=== PATIENT | male | born 1945 | race Two or more races ===

== ENCOUNTER 2020-05-30 13:27 | Inpatient (IN) | payer OTHER ==
[~2020-05-30] VITALS: Ht 167.6 cm; Wt 68.0 kg
[2020-05-30] MEDS ORDERED: SODIUM CHLORIDE 0.9% 500 ML IV ONE (15:45)
[2020-05-30] MEDS ORDERED: PANTOPRAZOLE 40mg/50ML NS AE 50 ML IV ONE (16:30)
[2020-05-30] MEDS ORDERED: PANTOPRAZOLE 40 MG/10 ML VIAL INJ IV ONE (16:30)
[2020-05-30 16:34] LABS: Basophils # (auto) 0 10 ^3/uL (0-0.2); Basophils % (auto) 0.1 % (0.0-2.0); Eosinophils # (auto) 0 10 ^3/uL (0-0.8); Hemoglobin 9.4 g/dL (13.5-17.5); Lymphocytes % (auto) 7.5 % (10.0-50.0); Mean Corpuscular Hemoglobin 33.5 pg (28.0-32.0); Mean Corpuscular Hgb Conc. 34.9 g/dL (32.0-36.0); Monocytes # (auto) 0.6 10 ^3/uL (0-1.3); Monocytes % (auto) 4.8 % (0.0-12.0); Neutrophils # (auto) 11.4 10 ^3/uL (1.6-8.6); Neutrophils % (auto) 87.6 % (37.0-80.0); Platelet Count (auto) 274 10^3/uL (140-450); Red Blood Cells 2.81 10^6/uL (4.5-5.90); Red Cell Distribution Width 13.3 % (11.8-14.3)
[2020-05-30 16:59] LABS: Anion Gap 11 (5-15); Calcium 8.3 mg/dL (8.5-10.1); Carbon Dioxide 21 mmol/L (21-32); Chloride 99 mmol/L (98-107); Glucose 98 mg/dL (74-106); Magnesium 1.8 mg/dL (1.6-2.6); Potassium 4.5 mmol/L (3.5-5.1); Sodium 131 mmol/L (136-145)
[2020-05-30 17:02] LABS: INR 1.08 (0.9-1.15)
[2020-05-30 17:05] LABS: Alanine Aminotransferase 17 U/L (16-61); Alkaline Phosphatase 41 U/L (45-117); Aspartate Aminotransferase 11 U/L (15-37); BUN/Creatinine Ratio 69.8; Bilirubin, Total 0.2 mg/dL (0.2-1.0); GFR African American 79 mL/min; GFR Non-African American 65 mL/min; Total Protein 6.4 g/dL (6.4-8.2)
[2020-05-30] MEDS ORDERED: OCTREOTIDE ACETATE 100 MCG in SODIUM CHL 0.9% 50 ML IV ONE (17:15)
[2020-05-30 17:21] LABS: Blood Urea Nitrogen 81 mg/dL (7-18)
[2020-05-30] MEDS ORDERED: FAMOTIDINE (10MG/ML) 2ML VL IV SCH (17:56)
[2020-05-30 18:38] LABS: Urine WBC None Seen /hpf (0 - 3)
[2020-05-30] MEDS: OCTREOTIDE ACETATE 500 MCG in SODIUM CHL 0.9% 99 ML IV SCH (19:07)
[2020-05-30 19:11] LABS: Urine Bacteria NONE SEEN /hpf (None Seen); Urine Blood Negative /uL (Negative); Urine Specific Gravity 1.018 (1.001-1.035)
[2020-05-30] MEDS ORDERED: SODIUM CHLORIDE 0.9% 1,000 ML IV ONE (19:30)
[2020-05-30 22:21] LABS: Hemoglobin 8.3 g/dL (13.5-17.5)
[2020-05-31] MEDS ORDERED: HYDROcodone-ACET 5/325MG TAB PO PRN (00:30)
[2020-05-31] MEDS ORDERED: NITROGLYCERIN 0.4 MG SL TAB SL PRN (00:30)
[2020-05-31] MEDS ORDERED: ACETAMINOPHEN 325 MG TAB PO PRN (00:30)
[2020-05-31] MEDS ORDERED: DOCUSATE SOD 100 MG CAP PO PRN (00:30)
[2020-05-31] MEDS ORDERED: ONDANSETRON HCL 4 MG/2 ML VIAL IV PRN (00:30)
[2020-05-31] MEDS ORDERED: FAMOTIDINE (10MG/ML) 2ML VL IV SCH (00:30)
[2020-05-31] MEDS ORDERED: MORPHINE SULF INJ 2 MG/ML SYRINGE 1ML IV PRN (00:30)
[2020-05-31] MEDS: SODIUM CHLORIDE 0.9% 1,000 ML IV SCH (00:30)
[2020-05-31] MEDS: OCTREOTIDE ACETATE 500 MCG in SODIUM CHL 0.9% 99 ML IV SCH ×2 (03:59→13:15)
[2020-05-31 07:37] LABS: Basophils # (auto) 0.1 10 ^3/uL (0-0.2); Eosinophils # (auto) 0 10 ^3/uL (0-0.8); Hemoglobin 7.9 g/dL (13.5-17.5); Lymphocytes # (auto) 2.1 10 ^3/uL (0.4-5.4); Monocytes # (auto) 0.8 10 ^3/uL (0-1.3); White Blood Cell 7.6 10^3/uL (4.4-10.8)
[2020-05-31 07:40] LABS: Basophils % (auto) 0.9 % (0.0-2.0); Eosinophils % (auto) 0.4 % (0.0-7.0); Lymphocytes % (auto) 27.8 % (10.0-50.0); Mean Corpuscular Hemoglobin 34.3 pg (28.0-32.0); Mean Corpuscular Volume 95.3 fL (80.0-100.0); Monocytes % (auto) 11.2 % (0.0-12.0); Neutrophils # (auto) 4.5 10 ^3/uL (1.6-8.6); Neutrophils % (auto) 59.7 % (37.0-80.0); Platelet Count (auto) 243 10^3/uL (140-450); Red Blood Cells 2.31 10^6/uL (4.5-5.90); Red Cell Distribution Width 13.4 % (11.8-14.3)
[2020-05-31 07:59] LABS: Calcium 8.5 mg/dL (8.5-10.1); Potassium 4.7 mmol/L (3.5-5.1)
[2020-05-31 08:01] LABS: BUN/Creatinine Ratio 59.2
[2020-05-31 08:04] LABS: Bilirubin, Total 0.2 mg/dL (0.2-1.0); Total Protein 5.8 g/dL (6.4-8.2)
[2020-05-31] MEDS ORDERED: PANTOPRAZOLE 40mg/50ML NS AE 50 ML IV SCH (09:15)
[2020-05-31] MEDS: cefTRIAXone 1GM/50ML D5W 50 ML IV SCH (09:25)
[2020-05-31] MEDS: MULTIPLE VITAMIN TAB PO SCH (09:26)
[2020-05-31] MEDS ORDERED: ASCORBIC ACID 500 MG TAB PO SCH (10:00)
[2020-05-31] MEDS ORDERED: ENOXAPARIN SOD 40 MG/0.4 ML SYRINGE SC SCH (10:00)
[2020-05-31] MEDS ORDERED: ZINC SULFATE 220mg CAP or TAB PO SCH (10:00)
[2020-05-31] MEDS: PANTOPRAZOLE 40mg/50ML NS AE 50 ML IV SCH (10:01)
[2020-06-01 00:31] LABS: Hematocrit 22.4 % (41.0-53.0)
[2020-06-01] MEDS: PANTOPRAZOLE 40 MG TAB PO SCH ×3 (02:21→09:36)
[2020-06-01] MEDS: SODIUM CHLORIDE 0.9% 1,000 ML IV SCH ×3 (02:28→09:38)
[2020-06-01] MEDS: PANTOPRAZOLE 40mg/50ML NS AE 50 ML IV SCH ×4 (02:29→09:38)
[2020-06-01 06:34] LABS: Basophils # (auto) 0 10 ^3/uL (0-0.2); Monocytes # (auto) 0.6 10 ^3/uL (0-1.3)
[2020-06-01 06:37] LABS: Basophils % (auto) 0.8 % (0.0-2.0); Eosinophils # (auto) 0.2 10 ^3/uL (0-0.8); Eosinophils % (auto) 2.6 % (0.0-7.0); Hematocrit 22.1 % (41.0-53.0); Lymphocytes # (auto) 1.2 10 ^3/uL (0.4-5.4); Lymphocytes % (auto) 20.4 % (10.0-50.0); Mean Corpuscular Hemoglobin 34.5 pg (28.0-32.0); Mean Corpuscular Hgb Conc. 36.3 g/dL (32.0-36.0); Mean Corpuscular Volume 94.9 fL (80.0-100.0); Monocytes % (auto) 9.8 % (0.0-12.0); Neutrophils % (auto) 66.4 % (37.0-80.0); Nucleated Red Blood Cells % 0.1 %; Platelet Count (auto) 264 10^3/uL (140-450); Red Blood Cells 2.33 10^6/uL (4.5-5.90); Red Cell Distribution Width 13.2 % (11.8-14.3)
[2020-06-01 07:06] LABS: Calcium 8.7 mg/dL (8.5-10.1); Potassium 4.2 mmol/L (3.5-5.1)
[2020-06-01 07:12] LABS: Albumin 3.1 g/dL (3.4-5.0); BUN/Creatinine Ratio 33.8; Bilirubin, Total 0.3 mg/dL (0.2-1.0)
[2020-06-01] MEDS: cefTRIAXone 1GM/50ML D5W 50 ML IV SCH ×2 (09:17→11:11)
[2020-06-01] MEDS: MULTIPLE VITAMIN TAB PO SCH (09:18)
[2020-06-01] MEDS ORDERED: LOSA25TA38 PO (12:19)
[2020-06-01] MEDS ORDERED: ISON100T32 PO (12:19)
[2020-06-01] MEDS ORDERED: LEVO25TA6 PO (12:19)
[2020-06-01] MEDS ORDERED: diphenhdrAMINE HCL 50 MG/1 ML VL ONE (12:19)
[2020-06-01] MEDS ORDERED: GLIP5TAB12 PO (12:19)
[2020-06-01] MEDS ORDERED: METF-370 PO (12:19)
[2020-06-01] MEDS ORDERED: fentaNYL CITRATE 100 MCG/2 ML VL ONE (12:20)
[2020-06-01] MEDS ORDERED: MIDAZOLAM HCL 5 MG/ML-1ML VIAL ONE (12:20)
[2020-06-01] MEDS ORDERED: LIDOCAINE VISCOUS 2% 15ML UD ONE (12:27)
[2020-06-01] MEDS ORDERED: PANT40T PO (13:38)
[2020-06-01 16:15] VITALS: BP 117/68
== END 2020-06-01 16:28 | disposition home or self-care (01) | DRG 378 ==
LOC: EDSEX 13:27 → ER 13:27 → EDBD 13:27 → OVERFLOW 05-31 00:25
PROVIDERS: ADMIT Nurse Practitioner Family; ATTEND Internal Medicine
PROC: 0DB68ZX Excision of Stomach, Via Natural or Artificial Opening Endoscopic, Diagnostic (ICD-10-PCS; principal; 2020-06-01 12:47)
DX: K29.81 Duodenitis with bleeding (principal); D62 Acute posthemorrhagic anemia; N39.0 Urinary tract infection, site not specified; E87.1 Hypo-osmolality and hyponatremia; K27.4 Chronic or unspecified peptic ulcer, site unspecified, with hemorrhage; N28.9 Disorder of kidney and ureter, unspecified; E86.1 Hypovolemia; D72.829 Elevated white blood cell count, unspecified; E86.0 Dehydration; E11.9 Type 2 diabetes mellitus without complications; F41.9 Anxiety disorder, unspecified; G89.29 Other chronic pain; I10 Essential (primary) hypertension; F17.210 Nicotine dependence, cigarettes, uncomplicated; J44.9 Chronic obstructive pulmonary disease, unspecified; N40.0 Benign prostatic hyperplasia without lower urinary tract symptoms; Z79.899 Other long term (current) drug therapy; Z79.891 Long term (current) use of opiate analgesic; Z79.01 Long term (current) use of anticoagulants; Z20.822 Contact with and (suspected) exposure to COVID-19; K29.71 Gastritis, unspecified, with bleeding
CPT/HCPCS: 36415; 43239; 71045; 74176; 80053; 81001; 83735; 83880; 84484; 85014; 85018; 85025; 85379; 85610; 85730; 86850; 86900; 86901; 86920; 87086; 87426; 93005; 96361; 96365; 96366; 96375; 99291; G0378; J0696; J2250; J3490

== ENCOUNTER 2023-06-07 23:47 | Inpatient (IN) | payer OTHER ==
[~2023-06-07] VITALS: Ht 170.2 cm; Wt 77.6 kg
[~2023-06-07 23:47] MED LIST: GLIP5TAB12 PO; ISON100T32 PO; LEVO25TA6 PO; LOSA25TA15 PO; METF-370 PO; PANT40T PO
[2023-06-08] VITALS (18 sets, daily range): BP systolic 105–118; BP diastolic 55–59; PULSE 62–96; RESP 14–23; TEMP 97.5–97.8; O2SAT 85–98
[2023-06-08 00:38] LABS: Basophils # (auto) 0 10 ^3/uL (0-0.2); Basophils % (auto) 0.2 % (0.0-2.0); Eosinophils # (auto) 0.1 10 ^3/uL (0-0.8); Hematocrit 38.4 % (41.0-53.0); Hemoglobin 12.9 g/dL (13.5-17.5); Lymphocytes # (auto) 0.6 10 ^3/uL (0.4-5.4); Lymphocytes % (auto) 3.6 % (10.0-50.0); Mean Corpuscular Hemoglobin 32.9 pg (28.0-32.0); Mean Corpuscular Hgb Conc. 33.7 g/dL (32.0-36.0); Mean Corpuscular Volume 97.6 fL (80.0-100.0); Monocytes # (auto) 1.1 10 ^3/uL (0-1.3); Monocytes % (auto) 6.9 % (0.0-12.0); Neutrophils # (auto) 13.7 10 ^3/uL (1.6-8.6); Neutrophils % (auto) 88.3 % (37.0-80.0); Nucleated Red Blood Cells % 0.1 %; Red Blood Cells 3.93 10^6/uL (4.5-5.90); Red Cell Distribution Width 13.9 % (11.8-14.3); White Blood Cell 15.5 10^3/uL (4.4-10.8)
[2023-06-08 00:56] LABS: Chloride 106 mmol/L (98-107); Potassium 3.5 mmol/L (3.5-5.1); Sodium 135 mmol/L (136-145)
[2023-06-08 00:57] LABS: Anion Gap 11 (5-15); Calcium 7.9 mg/dL (8.7-10.4); Carbon Dioxide 18 mmol/L (20-30)
[2023-06-08 01:02] LABS: BUN/Creatinine Ratio 21.5 (10.0-20.0); Blood Urea Nitrogen 20 mg/dL (9-23); Glucose 219 mg/dL (74-106)
[2023-06-08] MEDS ORDERED: ACETAMINOPHEN 325 MG TAB PO PRN (01:15)
[2023-06-08] MEDS ORDERED: methylPREDNISolone SOD SUCC 125 MG/2 ML VL IV ONE (01:15)
[2023-06-08] MEDS ORDERED: DEXTROSE (50%) 50ML SYRG IV PRN (01:15)
[2023-06-08] MEDS ORDERED: IOHEXOL 350 MG/ML 100ML IJ ONE (01:22)
[2023-06-08] MEDS: levoFLOXacin 500MG 100 ML IV SCH ×2 (02:04→10:22)
[2023-06-08] MEDS ORDERED: PROMETHAZINE HCL 25 MG/ML 1ML IV PRN (04:00)
[2023-06-08 05:29] LABS: Calcium 7.7 mg/dL (8.7-10.4); Chloride 107 mmol/L (98-107); Potassium 4.5 mmol/L (3.5-5.1); Sodium 136 mmol/L (136-145)
[2023-06-08 05:30] LABS: Anion Gap 7 (5-15); Basophils # (auto) 0 10 ^3/uL (0-0.2); Basophils % (auto) 0.1 % (0.0-2.0); Carbon Dioxide 22 mmol/L (20-30); Eosinophils # (auto) 0 10 ^3/uL (0-0.8); Eosinophils % (auto) 0.1 % (0.0-7.0); Hematocrit 36.1 % (41.0-53.0); Hemoglobin 12.2 g/dL (13.5-17.5); Lymphocytes # (auto) 0.4 10 ^3/uL (0.4-5.4); Lymphocytes % (auto) 3.3 % (10.0-50.0); Mean Corpuscular Hemoglobin 32.9 pg (28.0-32.0); Mean Corpuscular Hgb Conc. 33.8 g/dL (32.0-36.0); Mean Corpuscular Volume 97.2 fL (80.0-100.0); Monocytes # (auto) 0.2 10 ^3/uL (0-1.3); Neutrophils # (auto) 11.9 10 ^3/uL (1.6-8.6); Neutrophils % (auto) 94.5 % (37.0-80.0); Red Blood Cells 3.71 10^6/uL (4.5-5.90); Red Cell Distribution Width 13.6 % (11.8-14.3); White Blood Cell 12.6 10^3/uL (4.4-10.8)
[2023-06-08 05:35] LABS: BUN/Creatinine Ratio 23.6 (10.0-20.0); Blood Urea Nitrogen 17 mg/dL (9-23); Glucose 167 mg/dL (74-106)
[2023-06-08] MEDS: ACCU-CHEK COMFORT CURVE STRIP VI SCH ×4 (06:46→21:34)
[2023-06-08] MEDS: InsuLIN REG 1unit/0.01ml Soln (100units/ml) SC SCH ×4 (06:46→21:43)
[2023-06-08] MEDS: LEVOTHYROXINE SODIUM 25 MCG TAB PO SCH (06:46)
[2023-06-08] MEDS: ALBUTEROL SULF 2.5 MG/0.5ML(0.5%) NEB SOLN NEB SCH ×5 (07:00→22:20)
[2023-06-08] MEDS: IPRATROPIUM BROM 0.5 MG/2.5ML INH SOL NEB SCH ×5 (07:00→22:20)
[2023-06-08 09:30] LABS: Urine Bacteria NONE SEEN /hpf (None Seen); Urine Blood Negative /uL (Negative); Urine Clarity Clear (Clear); Urine Color Yellow (Yellow); Urine Protein, UAD 1+ (Negative); Urine Urobilinogen Normal (Negative); Urine WBC 1 /hpf (0 - 3); Urine pH 6.5 (5.0-8.0)
[2023-06-08 09:36] LABS: Urine Specific Gravity > 1.050 (1.001-1.035)
[2023-06-08] MEDS ORDERED: methylPREDNISolone SOD SUCC 40 MG/ML VL IV SCH (10:00)
[2023-06-08] MEDS: ASPirin 81 mg TAB PO SCH (10:20)
[2023-06-08] MEDS: APIXABAN 5 MG TAB PO SCH ×2 (10:21→21:34)
[2023-06-08] MEDS: FINASTERIDE 5 MG TAB PO SCH (10:21)
[2023-06-08] MEDS: CLOPIDOGREL BISULFATE 75 MG TAB PO SCH (10:21)
[2023-06-08] MEDS: METOPROLOL TARTRATE 25 MG TAB PO SCH ×2 (10:22→21:34)
[2023-06-08] MEDS: TAMSULOSIN HYDROCHLORIDE 0.4 MG CAP PO SCH (17:49)
[2023-06-08] MEDS: ATORVASTATIN 20 MG TAB PO SCH (21:34)
[2023-06-09] VITALS (17 sets, daily range): BP systolic 118–143; BP diastolic 58–74; PULSE 65–101; RESP 16–22; TEMP 97.4–98.3; O2SAT 70–95
[2023-06-09] MEDS: ACCU-CHEK COMFORT CURVE STRIP VI SCH ×4 (05:58→21:24)
[2023-06-09] MEDS: LEVOTHYROXINE SODIUM 25 MCG TAB PO SCH (05:58)
[2023-06-09] MEDS: InsuLIN REG 1unit/0.01ml Soln (100units/ml) SC SCH ×4 (05:59→21:24)
[2023-06-09 06:59] LABS: Basophils # (auto) 0 10 ^3/uL (0-0.2); Basophils % (auto) 0.1 % (0.0-2.0); Eosinophils # (auto) 0 10 ^3/uL (0-0.8); Eosinophils % (auto) 0.1 % (0.0-7.0); Hematocrit 33.4 % (41.0-53.0); Hemoglobin 11.4 g/dL (13.5-17.5); Lymphocytes # (auto) 0.9 10 ^3/uL (0.4-5.4); Lymphocytes % (auto) 6.1 % (10.0-50.0); Mean Corpuscular Hemoglobin 33.3 pg (28.0-32.0); Mean Corpuscular Hgb Conc. 34.2 g/dL (32.0-36.0); Mean Corpuscular Volume 97.6 fL (80.0-100.0); Monocytes # (auto) 1.3 10 ^3/uL (0-1.3); Monocytes % (auto) 8.7 % (0.0-12.0); Neutrophils # (auto) 12.6 10 ^3/uL (1.6-8.6); Nucleated Red Blood Cells % 0.1 %; Red Blood Cells 3.42 10^6/uL (4.5-5.90); Red Cell Distribution Width 13.4 % (11.8-14.3); White Blood Cell 14.9 10^3/uL (4.4-10.8)
[2023-06-09 07:28] LABS: Chloride 107 mmol/L (98-107); Potassium 3.6 mmol/L (3.5-5.1); Sodium 136 mmol/L (136-145)
[2023-06-09 07:29] LABS: Anion Gap 8 (5-15); Carbon Dioxide 21 mmol/L (20-30)
[2023-06-09 07:34] LABS: BUN/Creatinine Ratio 23.4 (10.0-20.0); Blood Urea Nitrogen 15 mg/dL (9-23); Glucose 175 mg/dL (74-106)
[2023-06-09] MEDS: ALBUTEROL SULF 2.5 MG/0.5ML(0.5%) NEB SOLN NEB SCH ×5 (07:50→21:54)
[2023-06-09] MEDS: IPRATROPIUM BROM 0.5 MG/2.5ML INH SOL NEB SCH ×5 (07:50→21:54)
[2023-06-09] MEDS: ASPirin 81 mg TAB PO SCH (09:53)
[2023-06-09] MEDS: APIXABAN 5 MG TAB PO SCH ×2 (09:54→21:23)
[2023-06-09] MEDS: FINASTERIDE 5 MG TAB PO SCH (09:55)
[2023-06-09] MEDS: METOPROLOL TARTRATE 25 MG TAB PO SCH ×2 (09:55→21:23)
[2023-06-09] MEDS: CLOPIDOGREL BISULFATE 75 MG TAB PO SCH (09:55)
[2023-06-09] MEDS: methylPREDNISolone SOD SUCC 40 MG/ML VL IV SCH ×2 (09:56→20:46)
[2023-06-09] MEDS: levoFLOXacin 500MG 100 ML IV SCH (10:04)
[2023-06-09] MEDS: TAMSULOSIN HYDROCHLORIDE 0.4 MG CAP PO SCH (17:31)
[2023-06-09] MEDS: ATORVASTATIN 20 MG TAB PO SCH (21:23)
[2023-06-10] VITALS (24 sets, daily range): BP systolic 142–164; BP diastolic 68–78; PULSE 76–106; RESP 16–28; TEMP 97.7–98.5; O2SAT 85–94
[2023-06-10] MEDS: ACCU-CHEK COMFORT CURVE STRIP VI SCH ×4 (06:07→21:43)
[2023-06-10] MEDS: LEVOTHYROXINE SODIUM 25 MCG TAB PO SCH (06:07)
[2023-06-10] MEDS: InsuLIN REG 1unit/0.01ml Soln (100units/ml) SC SCH ×4 (06:12→21:42)
[2023-06-10] MEDS: ALBUTEROL SULF 2.5 MG/0.5ML(0.5%) NEB SOLN NEB SCH ×5 (06:43→22:24)
[2023-06-10] MEDS: IPRATROPIUM BROM 0.5 MG/2.5ML INH SOL NEB SCH ×5 (06:43→22:24)
[2023-06-10 07:04] LABS: Basophils # (auto) 0 10 ^3/uL (0-0.2); Basophils % (auto) 0.1 % (0.0-2.0); Eosinophils # (auto) 0 10 ^3/uL (0-0.8); Hemoglobin 12.2 g/dL (13.5-17.5); Lymphocytes % (auto) 4.1 % (10.0-50.0); Mean Corpuscular Hemoglobin 32.9 pg (28.0-32.0); Mean Corpuscular Hgb Conc. 33.9 g/dL (32.0-36.0); Monocytes # (auto) 1.8 10 ^3/uL (0-1.3); Monocytes % (auto) 7.4 % (0.0-12.0); Neutrophils # (auto) 21.6 10 ^3/uL (1.6-8.6); Neutrophils % (auto) 88.4 % (37.0-80.0); Red Blood Cells 3.71 10^6/uL (4.5-5.90); Red Cell Distribution Width 13.8 % (11.8-14.3); White Blood Cell 24.5 10^3/uL (4.4-10.8)
[2023-06-10 07:10] LABS: Calcium 8.9 mg/dL (8.5-10.1); Chloride 105 mmol/L (98-107); Potassium 4.2 mmol/L (3.5-5.1); Sodium 136 mmol/L (136-145)
[2023-06-10 07:16] LABS: BUN/Creatinine Ratio 21.1 (10.0-20.0); Blood Urea Nitrogen 16 mg/dL (9-23); Glucose 233 mg/dL (74-106)
[2023-06-10 07:35] LABS: Anion Gap 10 (5-15); Carbon Dioxide 21 mmol/L (20-30)
[2023-06-10] MEDS ORDERED: CEFTRIAXONE SODIUM 2 GM in D5W 5% 100 ML IV SCH (08:45)
[2023-06-10] MEDS ORDERED: AZITHROMYCIN 500MG/ 250ML 250 ML IV SCH (08:45)
[2023-06-10] MEDS ORDERED: VANCOMYCIN 1GM/200ML 200 ML IV ONE (09:00)
[2023-06-10] MEDS ORDERED: VANCOMYCIN PER PHARMACY 0 MG IV SCH (09:00)
[2023-06-10] MEDS ORDERED: ALBUTEROL SULF 2.5 MG/0.5ML(0.5%) NEB SOLN NEB ONE (09:00)
[2023-06-10] MEDS ORDERED: FUROSEMIDE 40 MG/4 ML VIAL IV ONE (09:00)
[2023-06-10 09:23] LABS: Base Excess -0.6 mmol/L (-2.0-2.0)
[2023-06-10] MEDS: ASPirin 81 mg TAB PO SCH (09:32)
[2023-06-10] MEDS: methylPREDNISolone SOD SUCC 40 MG/ML VL IV SCH ×2 (09:32→21:25)
[2023-06-10] MEDS: FINASTERIDE 5 MG TAB PO SCH (09:32)
[2023-06-10] MEDS: METOPROLOL TARTRATE 25 MG TAB PO SCH ×2 (09:45→21:26)
[2023-06-10] MEDS: APIXABAN 5 MG TAB PO SCH ×2 (09:45→21:26)
[2023-06-10] MEDS: CLOPIDOGREL BISULFATE 75 MG TAB PO SCH (09:46)
[2023-06-10] MEDS ORDERED: BUDE0.253 NEB (10:00)
[2023-06-10] MEDS ORDERED: BUDE1AER5 IN (10:00)
[2023-06-10] MEDS ORDERED: ATOR10TA52 PO (10:00)
[2023-06-10] MEDS ORDERED: AMLO1TAB23 PO (10:00)
[2023-06-10] MEDS ORDERED: LIOT5TAB20 PO (10:12)
[2023-06-10] MEDS ORDERED: LOSA100T58 PO (10:12)
[2023-06-10] MEDS ORDERED: NITR0.4S29 SL (10:12)
[2023-06-10] MEDS ORDERED: CLOP75TA70 PO (10:12)
[2023-06-10] MEDS ORDERED: CETI10CH PO (10:12)
[2023-06-10] MEDS ORDERED: PRED20TA2 PO (10:12)
[2023-06-10] MEDS ORDERED: GEMF-66 PO (10:12)
[2023-06-10] MEDS ORDERED: FINA5TAB4 PO (10:12)
[2023-06-10] MEDS ORDERED: FORM20NE3 NEB (10:12)
[2023-06-10] MEDS ORDERED: METF-370 PO (10:12)
[2023-06-10] MEDS ORDERED: HYDR-4227 PO (10:12)
[2023-06-10] MEDS ORDERED: OMEP-434 PO (10:12)
[2023-06-10] MEDS ORDERED: DICY20TA PO (10:12)
[2023-06-10] MEDS ORDERED: GLIP5TAB12 PO (10:12)
[2023-06-10] MEDS ORDERED: LEV75T PO (10:12)
[2023-06-10] MEDS ORDERED: PANT40TA2 PO (10:12)
[2023-06-10 10:18] LABS: COVID19 ANTIGEN SOFIA FIA NEGATIVE (NEGATIVE)
[2023-06-10 10:18] LABS: Rapid Influenza A Negative (Negative); Rapid Influenza B Negative (Negative)
[2023-06-10 11:25] LABS: Base Excess -1.1 mmol/L (-2.0-2.0)
[2023-06-10] MEDS: MEROPENEM 1GM IVPB 100 ML IV SCH ×2 (14:26→22:58)
[2023-06-10] MEDS: TAMSULOSIN HYDROCHLORIDE 0.4 MG CAP PO SCH (17:47)
[2023-06-10] MEDS: VANCOMYCIN 1GM/200ML 200 ML IV SCH (21:26)
[2023-06-10] MEDS: ATORVASTATIN 20 MG TAB PO SCH (21:26)
[2023-06-11] VITALS (21 sets, daily range): BP systolic 121–151; BP diastolic 57–68; PULSE 64–87; RESP 17–30; TEMP 97.4–98.2; O2SAT 89–96
[2023-06-11] MEDS: LEVOTHYROXINE SODIUM 25 MCG TAB PO SCH (06:18)
[2023-06-11] MEDS: MEROPENEM 1GM IVPB 100 ML IV SCH ×3 (06:18→21:14)
[2023-06-11] MEDS: IPRATROPIUM BROM 0.5 MG/2.5ML INH SOL NEB SCH ×5 (06:21→22:15)
[2023-06-11] MEDS: ALBUTEROL SULF 2.5 MG/0.5ML(0.5%) NEB SOLN NEB SCH ×5 (06:21→22:15)
[2023-06-11] MEDS: ACCU-CHEK COMFORT CURVE STRIP VI SCH ×4 (06:25→21:14)
[2023-06-11] MEDS: InsuLIN REG 1unit/0.01ml Soln (100units/ml) SC SCH ×4 (06:28→21:23)
[2023-06-11 06:34] LABS: Basophils # (auto) 0 10 ^3/uL (0-0.2); Basophils % (auto) 0.1 % (0.0-2.0); Eosinophils # (auto) 0 10 ^3/uL (0-0.8); Hematocrit 31.6 % (41.0-53.0); Hemoglobin 10.6 g/dL (13.5-17.5); Lymphocytes # (auto) 0.5 10 ^3/uL (0.4-5.4); Lymphocytes % (auto) 2.5 % (10.0-50.0); Mean Corpuscular Hemoglobin 32.6 pg (28.0-32.0); Mean Corpuscular Hgb Conc. 33.5 g/dL (32.0-36.0); Mean Corpuscular Volume 97.1 fL (80.0-100.0); Neutrophils # (auto) 18.2 10 ^3/uL (1.6-8.6); Neutrophils % (auto) 92.4 % (37.0-80.0); Red Blood Cells 3.26 10^6/uL (4.5-5.90); Red Cell Distribution Width 14.1 % (11.8-14.3); White Blood Cell 19.7 10^3/uL (4.4-10.8)
[2023-06-11 06:35] LABS: Anion Gap 7 (5-15); Carbon Dioxide 27 mmol/L (20-30); Chloride 104 mmol/L (98-107); Potassium 3.9 mmol/L (3.5-5.1); Sodium 138 mmol/L (136-145)
[2023-06-11 06:36] LABS: Calcium 7.9 mg/dL (8.7-10.4)
[2023-06-11 06:41] LABS: Glucose 197 mg/dL (74-106)
[2023-06-11 06:42] LABS: Blood Urea Nitrogen 23 mg/dL (9-23)
[2023-06-11] MEDS: ASPirin 81 mg TAB PO SCH (10:09)
[2023-06-11] MEDS: FINASTERIDE 5 MG TAB PO SCH (10:09)
[2023-06-11] MEDS: FUROSEMIDE 20 MG/2 ML VIAL IV SCH (10:09)
[2023-06-11] MEDS: METOPROLOL TARTRATE 25 MG TAB PO SCH ×2 (10:09→21:14)
[2023-06-11] MEDS: VANCOMYCIN 1GM/200ML 200 ML IV SCH ×2 (10:09→21:57)
[2023-06-11] MEDS: methylPREDNISolone SOD SUCC 40 MG/ML VL IV SCH ×2 (10:09→21:13)
[2023-06-11] MEDS: CLOPIDOGREL BISULFATE 75 MG TAB PO SCH (10:09)
[2023-06-11] MEDS: APIXABAN 5 MG TAB PO SCH ×2 (10:09→21:14)
[2023-06-11] MEDS: TAMSULOSIN HYDROCHLORIDE 0.4 MG CAP PO SCH (18:24)
[2023-06-11] MEDS: ATORVASTATIN 20 MG TAB PO SCH (21:14)
[2023-06-11 22:39] LABS: Base Excess 1.5 mmol/L (-2.0-2.0)
[2023-06-12] VITALS (20 sets, daily range): BP systolic 135–157; BP diastolic 62–71; PULSE 63–95; RESP 16–28; TEMP 97.4–97.9; O2SAT 88–93
[2023-06-12] MEDS: MEROPENEM 1GM IVPB 100 ML IV SCH ×3 (06:06→22:45)
[2023-06-12] MEDS: LEVOTHYROXINE SODIUM 25 MCG TAB PO SCH (06:10)
[2023-06-12] MEDS: ACCU-CHEK COMFORT CURVE STRIP VI SCH ×4 (06:14→23:30)
[2023-06-12] MEDS: InsuLIN REG 1unit/0.01ml Soln (100units/ml) SC SCH ×4 (06:17→23:29)
[2023-06-12 07:01] LABS: Hematocrit 31.6 % (41.0-53.0); Hemoglobin 10.6 g/dL (13.5-17.5); Mean Corpuscular Hemoglobin 32.7 pg (28.0-32.0); Mean Corpuscular Hgb Conc. 33.6 g/dL (32.0-36.0); Mean Corpuscular Volume 97.5 fL (80.0-100.0); Red Blood Cells 3.24 10^6/uL (4.5-5.90); Red Cell Distribution Width 14.1 % (11.8-14.3); White Blood Cell 22.7 10^3/uL (4.4-10.8)
[2023-06-12 07:06] LABS: Basophils % (manual) 0 (0.0-2.0); Blast Cells 0; Eosinophils % (manual) 0 (0-7); Metamyelocytes % 0; Myelocytes % 0; Promyelocytes % 0; Reactive Lymphocytes 0
[2023-06-12] MEDS: ALBUTEROL SULF 2.5 MG/0.5ML(0.5%) NEB SOLN NEB SCH ×5 (07:14→22:29)
[2023-06-12 07:15] LABS: Anion Gap 5 (5-15); Calcium 8.5 mg/dL (8.7-10.4); Carbon Dioxide 27 mmol/L (20-30); Chloride 107 mmol/L (98-107); Potassium 4.2 mmol/L (3.5-5.1); Sodium 139 mmol/L (136-145)
[2023-06-12] MEDS: IPRATROPIUM BROM 0.5 MG/2.5ML INH SOL NEB SCH ×5 (07:15→22:29)
[2023-06-12 07:17] LABS: Glucose 228 mg/dL (74-106)
[2023-06-12 07:21] LABS: BUN/Creatinine Ratio 43.8 (10.0-20.0); Blood Urea Nitrogen 28 mg/dL (9-23)
[2023-06-12 07:22] LABS: Magnesium 2.4 mg/dL (1.6-2.6); Phosphorus 3.2 mg/dL (2.4-5.1)
[2023-06-12 08:04] LABS: Band Neutrophils % (manual) 3; Lymphocytes % (manual) 5 (10.0-50.0); Monocytes % (manual) 8 (0-12)
[2023-06-12 08:05] LABS: Platelet Estimate Adequate; RBC Morphology Normal
[2023-06-12 09:26] LABS: Base Excess 4.5 mmol/L (-2.0-2.0)
[2023-06-12 09:35] LABS: INR 1.09 (0.9-1.15); Prothrombin Time 11.4 sec (9.3-11.8)
[2023-06-12] MEDS: FUROSEMIDE 20 MG/2 ML VIAL IV SCH (10:30)
[2023-06-12] MEDS: methylPREDNISolone SOD SUCC 40 MG/ML VL IV SCH ×4 (10:30→23:27)
[2023-06-12] MEDS ORDERED: CLINIMIX PER PHARMACY 0 ML IV SCH (11:45)
[2023-06-12] MEDS: VANCOMYCIN 1GM/200ML 200 ML IV SCH ×2 (11:58→21:40)
[2023-06-12] MEDS: ASPirin 81 mg TAB PO SCH (11:58)
[2023-06-12] MEDS: APIXABAN 5 MG TAB PO SCH ×2 (11:59→21:41)
[2023-06-12] MEDS: CLOPIDOGREL BISULFATE 75 MG TAB PO SCH (11:59)
[2023-06-12] MEDS: FINASTERIDE 5 MG TAB PO SCH (12:00)
[2023-06-12] MEDS: METOPROLOL TARTRATE 25 MG TAB PO SCH ×2 (12:01→21:41)
[2023-06-12] MEDS ORDERED: LIDOCAINE 1% (LOCAL ANESTH.) PF 5ml SDV ID ONE (13:45)
[2023-06-12] MEDS: FUROSEMIDE 40 MG/4 ML VIAL IV SCH (18:10)
[2023-06-12] MEDS: TAMSULOSIN HYDROCHLORIDE 0.4 MG CAP PO SCH (18:10)
[2023-06-12] MEDS: AMINO ACID INFUSION IN D10W 1,000 ML IV SCH (20:07)
[2023-06-12] MEDS: ATORVASTATIN 20 MG TAB PO SCH (21:40)
[2023-06-12] MEDS: NINTEDANIB PO SCH (22:00)
[2023-06-12] MEDS: SODIUM CHLOR 0.9% PF (SALINE LOCK) 10ML VIAL/SYR IV SCH (22:05)
[2023-06-13] VITALS (64 sets, daily range): BP systolic 83–179; BP diastolic 19–107; PULSE 67–149; RESP 13–43; TEMP 97.2–98; O2SAT 53–98
[2023-06-13] MEDS ORDERED: DEXTROSE (50%) 50ML SYRG IV SCH
[2023-06-13] MEDS: FUROSEMIDE 40 MG/4 ML VIAL IV SCH ×2 (05:36→18:06)
[2023-06-13] MEDS: MEROPENEM 1GM IVPB 100 ML IV SCH ×3 (05:36→23:51)
[2023-06-13] MEDS: ACCU-CHEK COMFORT CURVE STRIP VI SCH ×4 (05:37→23:52)
[2023-06-13] MEDS: methylPREDNISolone SOD SUCC 40 MG/ML VL IV SCH ×2 (05:37→14:14)
[2023-06-13] MEDS: InsuLIN REG 1unit/0.01ml Soln (100units/ml) SC SCH ×4 (05:51→23:53)
[2023-06-13] MEDS: LEVOTHYROXINE SODIUM 25 MCG TAB PO SCH (05:53)
[2023-06-13] MEDS: ALBUTEROL SULF 2.5 MG/0.5ML(0.5%) NEB SOLN NEB SCH ×5 (06:11→21:55)
[2023-06-13] MEDS: IPRATROPIUM BROM 0.5 MG/2.5ML INH SOL NEB SCH ×5 (06:12→21:55)
[2023-06-13 06:19] LABS: Basophils # (auto) 0 10 ^3/uL (0-0.2); Eosinophils # (auto) 0 10 ^3/uL (0-0.8); Hematocrit 31.6 % (41.0-53.0); Hemoglobin 10.7 g/dL (13.5-17.5); Lymphocytes # (auto) 0.4 10 ^3/uL (0.4-5.4); Lymphocytes % (auto) 2.2 % (10.0-50.0); Mean Corpuscular Hemoglobin 33.1 pg (28.0-32.0); Mean Corpuscular Hgb Conc. 33.9 g/dL (32.0-36.0); Mean Corpuscular Volume 97.7 fL (80.0-100.0); Monocytes # (auto) 0.7 10 ^3/uL (0-1.3); Monocytes % (auto) 3.6 % (0.0-12.0); Neutrophils # (auto) 17.9 10 ^3/uL (1.6-8.6); Neutrophils % (auto) 94.2 % (37.0-80.0); Red Blood Cells 3.24 10^6/uL (4.5-5.90); Red Cell Distribution Width 14.2 % (11.8-14.3)
[2023-06-13 06:38] LABS: Alanine Aminotransferase 27 U/L (7-40); Albumin 3.2 g/dL (3.2-4.8); Alkaline Phosphatase 124 U/L (46-116); Anion Gap 4 (5-15); Aspartate Aminotransferase 47 U/L (13-40); BUN/Creatinine Ratio 52.9 (10.0-20.0); Blood Urea Nitrogen 36 mg/dL (9-23); Calcium 8.4 mg/dL (8.7-10.4); Carbon Dioxide 31 mmol/L (20-30); Chloride 109 mmol/L (98-107); Glucose 105 mg/dL (74-106); Magnesium 2.5 mg/dL (1.6-2.6); Sodium 144 mmol/L (136-145)
[2023-06-13 06:39] LABS: Phosphorus 3.1 mg/dL (2.4-5.1); Total Protein 6.2 g/dL (5.7-8.2)
[2023-06-13 08:21] LABS: Base Excess 0.9 mmol/L (-2.0-2.0)
[2023-06-13] MEDS: APIXABAN 5 MG TAB PO SCH ×2 (10:00→22:22)
[2023-06-13] MEDS: NINTEDANIB PO SCH ×2 (10:00→22:00)
[2023-06-13] MEDS: FINASTERIDE 5 MG TAB PO SCH (10:00)
[2023-06-13] MEDS: CLOPIDOGREL BISULFATE 75 MG TAB PO SCH (10:00)
[2023-06-13] MEDS: METOPROLOL TARTRATE 25 MG TAB PO SCH ×2 (10:00→22:00)
[2023-06-13] MEDS: ASPirin 81 mg TAB PO SCH (10:00)
[2023-06-13] MEDS: SODIUM CHLOR 0.9% PF (SALINE LOCK) 10ML VIAL/SYR IV SCH ×2 (10:53→22:21)
[2023-06-13] MEDS: VANCOMYCIN 1GM/200ML 200 ML IV SCH ×2 (10:53→22:20)
[2023-06-13] MEDS ORDERED: LORazepam 2MG/ML-1ML VIAL IV ONE (12:15)
[2023-06-13] MEDS ORDERED: ETOMIDATE (2MG/ML) 20ML VIAL IV ONE ×2 (12:28→15:15)
[2023-06-13] MEDS ORDERED: ROCURONIUM 10MG/ML 10ML VIAL IV ONE ×2 (12:29→15:15)
[2023-06-13] MEDS ORDERED: fentaNYL Drip 2500mCg/250mlNS 250 ML IV ONE (12:29)
[2023-06-13] MEDS ORDERED: MIDAZOLAM DRIP 50 mg/50mL 50 ML IV ONE (12:30)
[2023-06-13] MEDS: fentaNYL Drip 2500mCg/250mlNS 250 ML IV SCH ×2 (12:50→23:17)
[2023-06-13] MEDS: MIDAZOLAM DRIP 50 mg/50mL 50 ML IV SCH ×4 (12:50→23:52)
[2023-06-13] MEDS ORDERED: NOREPINEPHRINE 8 MG/250ML KIT 0 ML IV ONE (13:09)
[2023-06-13] MEDS ORDERED: PHENYLEPHRINE IV 250 ML IV ONE (13:10)
[2023-06-13] MEDS: PHENYLEPHRINE IV 250 ML IV SCH ×4 (13:15→20:08)
[2023-06-13] MEDS ORDERED: INSULIN LANTUS (GLARGINE) 1 /0.01ml (100units/ml) SC ONE (14:15)
[2023-06-13] MEDS ORDERED: Glucerna 1.2 Cal 1Liter BOTTLE GT SCH (15:00)
[2023-06-13 15:06] LABS: Base Excess -2.8 mmol/L (-2.0-2.0)
[2023-06-13] MEDS: NOREPINEPHRINE 8 MG/250ML KIT 250 ML IV SCH (15:42)
[2023-06-13] MEDS: VASOPRESSIN 20 UNITS in SODIUM CHL 0.9% 99 ML IV SCH (16:00)
[2023-06-13] MEDS: EPINEPHrine HCL 250 ML IV SCH (16:00)
[2023-06-13] MEDS: TAMSULOSIN HYDROCHLORIDE 0.4 MG CAP PO SCH (18:08)
[2023-06-13] MEDS: AMINO ACID INFUSION IN D10W 1,000 ML IV SCH (20:00)
[2023-06-13] MEDS: HYDROCORTISONE SOD SUCC 100 MG/2ML INJ VIAL IV SCH (22:20)
[2023-06-13] MEDS: PHENYLEPHRINE INJ 80 MG in SODIUM CHL 0.9% 242 ML IV SCH (22:21)
[2023-06-13] MEDS: ATORVASTATIN 20 MG TAB PO SCH (22:22)
[2023-06-13] MEDS: INSULIN LANTUS (GLARGINE) 1 /0.01ml (100units/ml) SC SCH (22:25)
[2023-06-14] VITALS (109 sets, daily range): BP systolic 95–136; BP diastolic 42–73; PULSE 81–115; RESP 13–28; TEMP 98.2–99; O2SAT 88–100
[2023-06-14] MEDS: VASOPRESSIN 20 UNITS in SODIUM CHL 0.9% 99 ML IV SCH ×2 (03:07→14:14)
[2023-06-14] MEDS: NOREPINEPHRINE 8 MG/250ML KIT 250 ML IV SCH (03:12)
[2023-06-14] MEDS: MIDAZOLAM DRIP 50 mg/50mL 50 ML IV SCH ×5 (03:13→17:18)
[2023-06-14 04:50] LABS: Hemoglobin 9.8 g/dL (13.5-17.5); Red Cell Distribution Width 14.4 % (11.8-14.3)
[2023-06-14 04:53] LABS: Hematocrit 30.8 % (41.0-53.0); Mean Corpuscular Hemoglobin 32.4 pg (28.0-32.0); Mean Corpuscular Volume 101.3 fL (80.0-100.0); Red Blood Cells 3.03 10^6/uL (4.5-5.90)
[2023-06-14 05:07] LABS: Anion Gap 6 (5-15); Carbon Dioxide 28 mmol/L (20-30); Chloride 110 mmol/L (98-107); Potassium 4.6 mmol/L (3.5-5.1); Sodium 144 mmol/L (136-145)
[2023-06-14 05:08] LABS: Calcium 7.8 mg/dL (8.7-10.4)
[2023-06-14 05:13] LABS: BUN/Creatinine Ratio 43.5 (10.0-20.0); Glucose 194 mg/dL (74-106)
[2023-06-14 05:14] LABS: Magnesium 2.7 mg/dL (1.6-2.6)
[2023-06-14 05:15] LABS: Albumin 3.2 g/dL (3.2-4.8); Phosphorus 6.1 mg/dL (2.4-5.1)
[2023-06-14 05:18] LABS: Blood Urea Nitrogen 54 mg/dL (9-23)
[2023-06-14 05:34] LABS: White Blood Cell 31.4 10^3/uL (4.4-10.8)
[2023-06-14] MEDS: ACCU-CHEK COMFORT CURVE STRIP VI SCH ×3 (05:37→17:22)
[2023-06-14] MEDS: InsuLIN REG 1unit/0.01ml Soln (100units/ml) SC SCH ×3 (05:39→17:25)
[2023-06-14] MEDS: HYDROCORTISONE SOD SUCC 100 MG/2ML INJ VIAL IV SCH ×3 (05:45→22:06)
[2023-06-14] MEDS: FUROSEMIDE 40 MG/4 ML VIAL IV SCH ×2 (05:45→17:18)
[2023-06-14 05:49] LABS: Basophils % (manual) 0 (0.0-2.0); Blast Cells 0; Eosinophils % (manual) 0 (0-7); Metamyelocytes % 0; Myelocytes % 0; Promyelocytes % 0; Reactive Lymphocytes 0
[2023-06-14 05:54] LABS: Band Neutrophils % (manual) 2; Lymphocytes % (manual) 4 (10.0-50.0); Macrocytosis Slight; Monocytes % (manual) 5 (0-12); Platelet Estimate Adequate
[2023-06-14 05:55] LABS: Large Platelets FEW
[2023-06-14] MEDS: MEROPENEM 1GM IVPB 100 ML IV SCH ×3 (05:58→22:06)
[2023-06-14] MEDS: LEVOTHYROXINE SODIUM 25 MCG TAB PO SCH (06:00)
[2023-06-14] MEDS: ALBUTEROL SULF 2.5 MG/0.5ML(0.5%) NEB SOLN NEB SCH ×5 (06:25→22:41)
[2023-06-14] MEDS: IPRATROPIUM BROM 0.5 MG/2.5ML INH SOL NEB SCH ×5 (06:25→22:41)
[2023-06-14 06:40] LABS: Base Excess -1.1 mmol/L (-2.0-2.0)
[2023-06-14] MEDS: fentaNYL Drip 2500mCg/250mlNS 250 ML IV SCH ×2 (07:14→16:40)
[2023-06-14] MEDS ORDERED: SODIUM BICARBONATE 8.4 % INJ 50ML VIAL IV ONE ×2 (08:15→08:45)
[2023-06-14] MEDS: NINTEDANIB PO SCH ×2 (10:00→22:00)
[2023-06-14] MEDS: FINASTERIDE 5 MG TAB PO SCH (10:00)
[2023-06-14] MEDS: METOPROLOL TARTRATE 25 MG TAB PO SCH ×2 (10:00→22:05)
[2023-06-14] MEDS ORDERED: LIDOCAINE 2% JELLY 11ml (GLYDO) ONE (10:06)
[2023-06-14] MEDS ORDERED: LIDOCAINE 2%HCL (LOCAL ANESTH.) INJ 20ML MDV ONE (10:06)
[2023-06-14] MEDS ORDERED: EPINEPHrine HCL 1 MG/1 ML AMP ONE (10:07)
[2023-06-14] MEDS ORDERED: GLYCOPYRROLATE 0.2 MG/ML 1ML VIAL ONE (10:07)
[2023-06-14] MEDS: CLOPIDOGREL BISULFATE 75 MG TAB PO SCH (10:07)
[2023-06-14] MEDS: ASPirin 81 mg TAB PO SCH (10:07)
[2023-06-14] MEDS: APIXABAN 5 MG TAB PO SCH ×2 (10:07→22:05)
[2023-06-14] MEDS: SODIUM CHLOR 0.9% PF (SALINE LOCK) 10ML VIAL/SYR IV SCH ×2 (10:08→22:06)
[2023-06-14 10:23] LABS: Base Excess 0.5 mmol/L (-2.0-2.0)
[2023-06-14] MEDS ORDERED: NALOXONE HCL 0.4 MG/ML VIAL ONE (10:24)
[2023-06-14] MEDS ORDERED: FLUMAZENIL 0.1 MG/ML INJ 10ML MDV IV ONE (10:24)
[2023-06-14] MEDS: PHENYLEPHRINE INJ 80 MG in SODIUM CHL 0.9% 242 ML IV SCH (12:40)
[2023-06-14 13:27] LABS: Base Excess 0.9 mmol/L (-2.0-2.0)
[2023-06-14] MEDS: EPINEPHrine HCL 250 ML IV SCH (16:00)
[2023-06-14] MEDS: TAMSULOSIN HYDROCHLORIDE 0.4 MG CAP PO SCH (17:12)
[2023-06-14 18:39] LABS: Hemoglobin 9.4 g/dL (13.5-17.5)
[2023-06-14] MEDS: AMINO ACID INFUSION IN D10W 1,000 ML IV SCH (20:56)
[2023-06-14] MEDS: ATORVASTATIN 20 MG TAB PO SCH (22:06)
[2023-06-14] MEDS: LINEZOLID 600MG/300ML 300 ML IV SCH (22:06)
[2023-06-14] MEDS: INSULIN LANTUS (GLARGINE) 1 /0.01ml (100units/ml) SC SCH (22:10)
[2023-06-15] VITALS (105 sets, daily range): BP systolic 95–139; BP diastolic 39–71; PULSE 77–117; RESP 18–28; TEMP 98.1–99.5; O2SAT 83–97
[2023-06-15] MEDS: ACCU-CHEK COMFORT CURVE STRIP VI SCH ×4 (00:07→17:20)
[2023-06-15] MEDS: InsuLIN REG 1unit/0.01ml Soln (100units/ml) SC SCH ×4 (00:07→17:22)
[2023-06-15] MEDS: VASOPRESSIN 20 UNITS in SODIUM CHL 0.9% 99 ML IV SCH ×2 (01:21→12:28)
[2023-06-15] MEDS: PHENYLEPHRINE IV 250 ML IV SCH ×2 (01:35→08:55)
[2023-06-15 05:02] LABS: Hematocrit 28.3 % (41.0-53.0); Mean Corpuscular Hgb Conc. 31.9 g/dL (32.0-36.0); Mean Corpuscular Volume 103.4 fL (80.0-100.0); Red Blood Cells 2.74 10^6/uL (4.5-5.90); Red Cell Distribution Width 15.2 % (11.8-14.3); White Blood Cell 26.8 10^3/uL (4.4-10.8)
[2023-06-15 05:31] LABS: Alanine Aminotransferase 21 U/L (7-40); Albumin 2.8 g/dL (3.2-4.8); Alkaline Phosphatase 107 U/L (46-116); Anion Gap 3 (5-15); Aspartate Aminotransferase 20 U/L (13-40); BUN/Creatinine Ratio 46.9 (10.0-20.0); Blood Urea Nitrogen 61 mg/dL (9-23); Calcium 7.5 mg/dL (8.7-10.4); Carbon Dioxide 32 mmol/L (20-30); Chloride 111 mmol/L (98-107); Magnesium 2.7 mg/dL (1.6-2.6); Phosphorus 4.5 mg/dL (2.4-5.1); Potassium 5.1 mmol/L (3.5-5.1); Sodium 146 mmol/L (136-145)
[2023-06-15 05:32] LABS: Bilirubin, Total 0.6 mg/dL (0.2-1.0); Total Protein 5.3 g/dL (5.7-8.2)
[2023-06-15 05:43] LABS: Glucose 338 mg/dL (74-106)
[2023-06-15 06:00] LABS: Band Neutrophils % (manual) 0; Basophils % (manual) 0 (0.0-2.0); Blast Cells 0; Eosinophils % (manual) 0 (0-7); Lymphocytes % (manual) 0 (10.0-50.0); Metamyelocytes % 0; Myelocytes % 0; Promyelocytes % 0; Reactive Lymphocytes 0
[2023-06-15] MEDS: FUROSEMIDE 40 MG/4 ML VIAL IV SCH ×2 (06:01→17:47)
[2023-06-15] MEDS: MEROPENEM 1GM IVPB 100 ML IV SCH ×3 (06:01→21:55)
[2023-06-15] MEDS: LEVOTHYROXINE SODIUM 25 MCG TAB PO SCH (06:02)
[2023-06-15] MEDS: HYDROCORTISONE SOD SUCC 100 MG/2ML INJ VIAL IV SCH ×3 (06:14→21:54)
[2023-06-15] MEDS: ALBUTEROL SULF 2.5 MG/0.5ML(0.5%) NEB SOLN NEB SCH ×5 (06:15→21:47)
[2023-06-15] MEDS: IPRATROPIUM BROM 0.5 MG/2.5ML INH SOL NEB SCH ×5 (06:15→21:47)
[2023-06-15 07:42] LABS: Monocytes % (manual) 6 (0-12); Platelet Estimate Adequate
[2023-06-15] MEDS: LINEZOLID 600MG/300ML 300 ML IV SCH ×2 (09:03→21:54)
[2023-06-15] MEDS: SODIUM CHLOR 0.9% PF (SALINE LOCK) 10ML VIAL/SYR IV SCH ×2 (09:04→21:55)
[2023-06-15] MEDS: MIDAZOLAM DRIP 50 mg/50mL 50 ML IV SCH ×3 (09:08→16:15)
[2023-06-15] MEDS: NINTEDANIB PO SCH ×2 (09:16→21:55)
[2023-06-15] MEDS: fentaNYL Drip 2500mCg/250mlNS 250 ML IV SCH ×2 (09:16→17:49)
[2023-06-15] MEDS: METOPROLOL TARTRATE 25 MG TAB PO SCH ×2 (09:17→21:55)
[2023-06-15] MEDS: FINASTERIDE 5 MG TAB PO SCH (09:18)
[2023-06-15 09:20] LABS: Base Excess 2.6 mmol/L (-2.0-2.0)
[2023-06-15] MEDS: APIXABAN 5 MG TAB PO SCH ×2 (09:21→21:55)
[2023-06-15] MEDS: ASPirin 81 mg TAB PO SCH (09:21)
[2023-06-15] MEDS: CLOPIDOGREL BISULFATE 75 MG TAB PO SCH (09:21)
[2023-06-15] MEDS ORDERED: TPN PER PHARMACY 0 ML IV SCH (10:45)
[2023-06-15] MEDS: NOREPINEPHRINE 8 MG/250ML KIT 250 ML IV SCH (13:54)
[2023-06-15] MEDS: EPINEPHrine HCL 250 ML IV SCH (16:00)
[2023-06-15] MEDS: SOD CHL 0.45% 1,000 ML IV SCH (16:17)
[2023-06-15] MEDS: TAMSULOSIN HYDROCHLORIDE 0.4 MG CAP PO SCH (18:00)
[2023-06-15] MEDS: PHENYLEPHRINE INJ 80 MG in SODIUM CHL 0.9% 242 ML IV SCH (18:14)
[2023-06-15] MEDS ORDERED: PROPOFOL 100 ML IV SCH (18:15)
[2023-06-15] MEDS ORDERED: LIDOCAINE 2% JELLY 11ml (GLYDO) UR ONE (18:45)
[2023-06-15] MEDS ORDERED: TPN PER PHARMACY IV NR ×7 (20:00)
[2023-06-15] MEDS: INSULIN LANTUS (GLARGINE) 1 /0.01ml (100units/ml) SC SCH (20:00)
[2023-06-15] MEDS: ATORVASTATIN 20 MG TAB PO SCH (21:55)
[2023-06-16] VITALS (66 sets, daily range): BP systolic 0–146; BP diastolic 0–103; PULSE 55–128; RESP 0–32; TEMP 92.5–98.4; O2SAT 51–100
[2023-06-16 00:19] LABS: Hemoglobin 7.8 g/dL (13.5-17.5); Red Cell Distribution Width 15.4 % (11.8-14.3)
[2023-06-16 00:20] LABS: Hematocrit 25.2 % (41.0-53.0); Mean Corpuscular Hemoglobin 32.9 pg (28.0-32.0); Mean Corpuscular Hgb Conc. 31.1 g/dL (32.0-36.0); Mean Corpuscular Volume 105.8 fL (80.0-100.0); Red Blood Cells 2.38 10^6/uL (4.5-5.90); White Blood Cell 29.4 10^3/uL (4.4-10.8)
[2023-06-16 00:29] LABS: Basophils % (manual) 0 (0.0-2.0); Blast Cells 0; Eosinophils % (manual) 0 (0-7); Metamyelocytes % 0; Myelocytes % 0; Potassium 4.7 mmol/L (3.5-5.1); Promyelocytes % 0; Reactive Lymphocytes 0
[2023-06-16 00:30] LABS: Calcium 7.6 mg/dL (8.5-10.1)
[2023-06-16 00:35] LABS: BUN/Creatinine Ratio 42.5 (10.0-20.0)
[2023-06-16 00:37] LABS: Albumin 2.8 g/dL (3.2-4.8); Phosphorus 4.2 mg/dL (2.4-5.1)
[2023-06-16] MEDS ORDERED: PHENYLEPHRINE IV 250 ML IV ONE (01:08)
[2023-06-16] MEDS ORDERED: PHENYLEPHRINE HCL 10 MG/ML VL ONE (01:13)
[2023-06-16 01:17] LABS: Mean Corpuscular Hemoglobin 33.4 pg (28.0-32.0); Red Blood Cells 2.39 10^6/uL (4.5-5.90)
[2023-06-16 01:19] LABS: Hematocrit 25.5 % (41.0-53.0); Mean Corpuscular Hgb Conc. 31.3 g/dL (32.0-36.0); Mean Corpuscular Volume 106.9 fL (80.0-100.0); Red Cell Distribution Width 15.2 % (11.8-14.3)
[2023-06-16 01:19] LABS: Magnesium 2.7 mg/dL (1.6-2.6)
[2023-06-16 01:23] LABS: White Blood Cell 30.5 10^3/uL (4.4-10.8)
[2023-06-16 01:24] LABS: Basophils % (manual) 0 (0.0-2.0); Blast Cells 0; Eosinophils % (manual) 0 (0-7); Metamyelocytes % 0; Myelocytes % 0; Promyelocytes % 0; Reactive Lymphocytes 0
[2023-06-16 01:36] LABS: INR 1.15 (0.9-1.15); Partial Thromboplastin Time 31.5 SEC (24.5-34.5)
[2023-06-16 01:39] LABS: Band Neutrophils % (manual) 5; Lymphocytes % (manual) 6 (10.0-50.0); Monocytes % (manual) 3 (0-12)
[2023-06-16 01:40] LABS: Platelet Estimate Adequate
[2023-06-16 01:49] LABS: Band Neutrophils % (manual) 1; Lymphocytes % (manual) 6 (10.0-50.0); Monocytes % (manual) 2 (0-12)
[2023-06-16 01:50] LABS: Platelet Estimate Adequate
[2023-06-16 02:03] LABS: % Iron Saturation 22.2 % (20-55)
[2023-06-16] MEDS: VASOPRESSIN 20 UNITS in SODIUM CHL 0.9% 99 ML IV SCH ×2 (02:51→10:51)
[2023-06-16] MEDS: EPINEPHrine HCL 250 ML IV SCH (04:50)
[2023-06-16] MEDS: FUROSEMIDE 40 MG/4 ML VIAL IV SCH (06:00)
[2023-06-16] MEDS: InsuLIN REG 1unit/0.01ml Soln (100units/ml) SC SCH ×3 (06:00→12:19)
[2023-06-16] MEDS: ALBUTEROL SULF 2.5 MG/0.5ML(0.5%) NEB SOLN NEB SCH ×3 (06:00→10:05)
[2023-06-16] MEDS: ACCU-CHEK COMFORT CURVE STRIP VI SCH ×3 (06:01→12:19)
[2023-06-16] MEDS: IPRATROPIUM BROM 0.5 MG/2.5ML INH SOL NEB SCH ×2 (06:18→10:05)
[2023-06-16] MEDS: MEROPENEM 1GM IVPB 100 ML IV SCH (06:22)
[2023-06-16] MEDS: LEVOTHYROXINE SODIUM 25 MCG TAB PO SCH (06:22)
[2023-06-16] MEDS: HYDROCORTISONE SOD SUCC 100 MG/2ML INJ VIAL IV SCH (06:22)
[2023-06-16 08:14] LABS: Base Excess -3.7 mmol/L (-2.0-2.0)
[2023-06-16 09:00] LABS: Alanine Aminotransferase 15 U/L (7-40); Albumin 1.9 g/dL (3.2-4.8); Alkaline Phosphatase 100 U/L (46-116); Anion Gap 5 (5-15); Aspartate Aminotransferase 25 U/L (13-40); BUN/Creatinine Ratio 39.7 (10.0-20.0); Bilirubin, Total 0.8 mg/dL (0.2-1.0); Blood Urea Nitrogen 58 mg/dL (9-23); Carbon Dioxide 26 mmol/L (20-30); Chloride 110 mmol/L (98-107); Potassium 4.3 mmol/L (3.5-5.1); Sodium 141 mmol/L (136-145); Total Protein 3.5 g/dL (5.7-8.2)
[2023-06-16] MEDS: CLOPIDOGREL BISULFATE 75 MG TAB PO SCH (09:20)
[2023-06-16] MEDS: APIXABAN 5 MG TAB PO SCH (09:21)
[2023-06-16] MEDS: ASPirin 81 mg TAB PO SCH (09:21)
[2023-06-16] MEDS: METOPROLOL TARTRATE 25 MG TAB PO SCH (09:21)
[2023-06-16] MEDS: NINTEDANIB PO SCH (09:23)
[2023-06-16] MEDS: SODIUM CHLOR 0.9% PF (SALINE LOCK) 10ML VIAL/SYR IV SCH (09:24)
[2023-06-16 09:27] LABS: Calcium 5.8 mg/dL (8.5-10.1); Glucose 436 mg/dL (74-106)
[2023-06-16] MEDS: FINASTERIDE 5 MG TAB PO SCH (09:38)
[2023-06-16] MEDS: LINEZOLID 600MG/300ML 300 ML IV SCH (09:55)
[2023-06-16] MEDS ORDERED: CALCIUM GLUC 4.65meq/50ml D5AE 50 ML IV ONE (10:15)
[2023-06-16 10:25] LABS: Magnesium 2.1 mg/dL (1.6-2.6)
[2023-06-16 10:26] LABS: Phosphorus 4.6 mg/dL (2.4-5.1)
[2023-06-16] MEDS ORDERED: DOPamine 1600MCG/ML D5W 250 ML IV ONE (10:28)
[2023-06-16] MEDS ORDERED: CALCIUM GLUC 1,000mg/50ml-NS 50 ML IV ONE (10:30)
[2023-06-16] MEDS ORDERED: DOPamine 1600MCG/ML D5W 250 ML IV SCH (10:45)
[2023-06-16 10:54] LABS: Mean Corpuscular Volume 110.6 fL (80.0-100.0); Red Cell Distribution Width 15.9 % (11.8-14.3); White Blood Cell 23.4 10^3/uL (4.4-10.8)
[2023-06-16 10:57] LABS: Hematocrit 18.2 % (41.0-53.0); Mean Corpuscular Hemoglobin 32.3 pg (28.0-32.0); Mean Corpuscular Hgb Conc. 29.2 g/dL (32.0-36.0); Red Blood Cells 1.65 10^6/uL (4.5-5.90)
[2023-06-16] MEDS: SOD CHL 0.45% 1,000 ML IV SCH (10:59)
[2023-06-16 11:07] LABS: Hemoglobin 5.3 g/dL (13.5-17.5)
[2023-06-16 11:10] LABS: Basophils % (manual) 0 (0.0-2.0); Blast Cells 0; Eosinophils % (manual) 0 (0-7); Myelocytes % 0; Reactive Lymphocytes 0
[2023-06-16 11:28] LABS: Band Neutrophils % (manual) 6; Lymphocytes % (manual) 2 (10.0-50.0); Metamyelocytes % 2; Monocytes % (manual) 3 (0-12); Promyelocytes % 4
[2023-06-16 11:29] LABS: Platelet Estimate Decreased
[2023-06-16] MEDS ORDERED: MORPHINE SULFATE INJ 2 MG/ml SYRG ONE (13:53)
[2023-06-16] MEDS ORDERED: MORPHINE SULFATE INJ 2 MG/ml SYRG IV PRN (14:00)
[2023-06-16] MEDS ORDERED: LORazepam 2MG/ML-1ML VIAL IV PRN (14:00)
[2023-06-16] MEDS ORDERED: TPN PER PHARMACY IV NR ×10 (20:00)
== END 2023-06-16 13:58 | DRG 208 ==
LOC: ER 23:47 → EDBD 23:47 → TELE 06-08 01:21 → TELE-WESTW 06-08 14:57 → DOU IN ICU 06-13 11:50 → ICU CENTRL 06-13 17:34
PROVIDERS: ADMIT Internal Medicine; ATTEND Internal Medicine
PROC: 5A09457 Assistance with Respiratory Ventilation, 24-96 Consecutive Hours, Continuous Positive Airway Pressure (ICD-10-PCS; 2023-06-10)
PROC: 02HV33Z Insertion of Infusion Device into Superior Vena Cava, Percutaneous Approach (ICD-10-PCS; 2023-06-12)
PROC: B548ZZA Ultrasonography of Superior Vena Cava, Guidance (ICD-10-PCS; 2023-06-12)
PROC: 5A1945Z Respiratory Ventilation, 24-96 Consecutive Hours (ICD-10-PCS; principal; 2023-06-13)
PROC: 0BH17EZ Insertion of Endotracheal Airway into Trachea, Via Natural or Artificial Opening (ICD-10-PCS; 2023-06-13)
PROC: 03HY32Z Insertion of Monitoring Device into Upper Artery, Percutaneous Approach (ICD-10-PCS; 2023-06-13)
PROC: 0B9D8ZX Drainage of Right Middle Lung Lobe, Via Natural or Artificial Opening Endoscopic, Diagnostic (ICD-10-PCS; 2023-06-14)
PROC: 30233N1 Transfusion of Nonautologous Red Blood Cells into Peripheral Vein, Percutaneous Approach (ICD-10-PCS; 2023-06-16)
DX: J96.21 Acute and chronic respiratory failure with hypoxia (principal); J18.9 Pneumonia, unspecified organism; E43 Unspecified severe protein-calorie malnutrition; J84.9 Interstitial pulmonary disease, unspecified; J44.1 Chronic obstructive pulmonary disease with (acute) exacerbation; J44.0 Chronic obstructive pulmonary disease with (acute) lower respiratory infection; J98.11 Atelectasis; N17.9 Acute kidney failure, unspecified; K92.2 Gastrointestinal hemorrhage, unspecified; J84.10 Pulmonary fibrosis, unspecified; I27.20 Pulmonary hypertension, unspecified; E86.1 Hypovolemia; N40.0 Benign prostatic hyperplasia without lower urinary tract symptoms; E03.9 Hypothyroidism, unspecified; E11.22 Type 2 diabetes mellitus with diabetic chronic kidney disease; Z66 Do not resuscitate; E83.39 Other disorders of phosphorus metabolism; I12.9 Hypertensive chronic kidney disease with stage 1 through stage 4 chronic kidney disease, or unspecified chronic kidney disease; I25.10 Atherosclerotic heart disease of native coronary artery without angina pectoris; N32.9 Bladder disorder, unspecified; Z20.822 Contact with and (suspected) exposure to COVID-19; N18.30 Chronic kidney disease, stage 3 unspecified; E78.00 Pure hypercholesterolemia, unspecified; R31.0 Gross hematuria; D50.0 Iron deficiency anemia secondary to blood loss (chronic); Z87.891 Personal history of nicotine dependence; Z79.02 Long term (current) use of antithrombotics/antiplatelets; Z79.4 Long term (current) use of insulin; Z68.26 Body mass index [BMI] 26.0-26.9, adult
CPT/HCPCS: 36415; 36569; 36600; 71045; 71275; 76775; 80048; 80053; 80069; 80202; 81001; 82040; 82607; 82805; 82962; 83540; 83550; 83735; 83880; 84100; 84478; 84484; 85007; 85014; 85018; 85025; 85027; 85610; 85730; 86850; 86900; 86901; 86920; 87040; 87070; 87081; 87086; 87205; 87426; 87449; 87804; 93005; 93306; 94002; 94003; 94640; 94660; 97110; 97116; 97163; 97530; G0378; J0171; J0610; J0696; J1815; J1956; J2185; J2250; J2704; J7060